=== PATIENT | female | born 1950 | race Two or more races ===

== ENCOUNTER 2018-10-29 05:07 | Emergency (ER) | payer OTHER ==
[~2018-10-29] VITALS: Ht 162.6 cm; Wt 95.5 kg
[2018-10-29 05:09] VITALS: Ht 162.6 cm; Wt 95.5 kg
[2018-10-29] MEDS ORDERED: SOD CHLORIDE 0.9% 500 ML IV STA (05:43)
[2018-10-29] MEDS ORDERED: ONDANSETRON 4 MG INJ IV STA (05:43)
[2018-10-29] MEDS ORDERED: METF-849 PO (06:44)
[2018-10-29] MEDS ORDERED: ONDA4TAB14 PO (06:44)
--- NOTE | 2018-10-29 06:46 | ERD ---
ER Documentation Chief Complaint Chief Complaint NAUSEA WITH VOMIT HPI Patient is a 68-year-old female with no diabetes other than prediabetes she says who presents feeling dizzy and thirsty. She had vomiting as well. The symptoms started last night after she ate a lot of food including an orange and grapefruit. She is not on diabetes medications. She said that her primary doctor is at [facility]. She has had no treatment for the vomiting or dizziness as of yet. ROS All systems reviewed and are negative except as per history of present illness. Medications Home Meds Active Scripts Ondansetron (Ondansetron Odt) 4 Mg Tab.rapdis, 4 MG PO Q6H PRN for NAUSEA AND/OR VOMITING, #10 TAB Prov:EAN PEREZ MD 10/29/18 Metformin* (Glucophage*) 500 Mg Tab, 500 MG PO BID, #60 TAB Prov:EAN PEREZ MD 10/29/18 Allergies Allergies: Coded Allergies: No Known Allergy (Unverified , 10/29/18) PMhx/Soc History of Surgery: Yes (BILATERAL TOTAL KNEE REPLACEMENT) Anesthesia Reaction: No Hx Miscellaneous Medical Probl: Yes (HYPOTHYROIDISM, ANXIETY) Hx Alcohol Use: Yes (OCCASIONAL) Hx Substance Use: No Hx Tobacco Use: No Smoking Status: Never smoker FmHx Family History: No diabetes Physical Exam Vitals Vital Signs Date Temp Pulse Resp B/P (MAP) Pulse Ox O2 O2 Flow FiO2 Time Delivery Rate 10/29/18 98.1 92 19 182/92 97 Room Air 05:17 (122) 10/29/18 98.1 92 19 182/92 97 05:09 (122) Physical Exam Const: No acute distress Head: Atraumatic Eyes: Normal Conjunctiva ENT: Dry mucous membranes Neck: Full range of motion. No meningismus. Resp: Clear to auscultation bilaterally Cardio: Regular rate and rhythm, no murmurs Abd: Soft, non tender, non distended. Normal bowel sounds Skin: No petechiae or rashes Back: No midline or flank tenderness Ext: No cyanosis, or edema Neur: Awake and alert Psych: Normal Mood and Affect Result Diagram: 10/29/18 0553 10/29/18 0553 Results 24 hrs Laboratory Tests Test 10/29/18 05:53 10/29/18 06:20 White Blood Count 7.6 10^3/ul Red Blood Count 4.34 10^6/ul Hemoglobin 12.3 g/dl Hematocrit 37.4 % Mean Corpuscular Volume 86.2 fl Mean Corpuscular Hemoglobin 28.3 pg Mean Corpuscular Hemoglobin Concent 32.9 g/dl Red Cell Distribution Width 12.0 % Platelet Count 362 10^3/UL Mean Platelet Volume 9.2 fl Immature Granulocytes % 0.300 % Neutrophils % 83.5 % Lymphocytes % 11.1 % Monocytes % 5.0 % Eosinophils % 0.0 % Basophils % 0.1 % Nucleated Red Blood Cells % 0.0 /100WBC Immature Granulocytes # 0.020 10^3/ul Neutrophils # 6.3 10^3/ul Lymphocytes # 0.8 10^3/ul Monocytes # 0.4 10^3/ul Eosinophils # 0.0 10^3/ul Basophils # 0.0 10^3/ul Nucleated Red Blood Cells # 0.0 10^3/ul Sodium Level 142 mmol/L Potassium Level 4.6 mmol/L Chloride Level 97 mmol/L Carbon Dioxide Level 30 mmol/L Anion Gap 15 Blood Urea Nitrogen 20 mg/dl Creatinine 0.62 mg/dl Est Glomerular Filtrat Rate mL/min > 60 mL/min Glucose Level 518 mg/dl Calcium Level 10.4 mg/dl Total Bilirubin 0.1 mg/dl Direct Bilirubin 0.00 mg/dl Indirect Bilirubin 0.1 mg/dl Aspartate Amino Transf (AST/SGOT) 22 IU/L Alanine Aminotransferase (ALT/SGPT) 33 IU/L Alkaline Phosphatase 141 IU/L Troponin I < 0.012 ng/ml Total Protein 8.0 g/dl Albumin 4.3 g/dl Globulin 3.70 g/dl Albumin/Globulin Ratio 1.16 Lipase 58 U/L Urine Color YELLOW Urine Clarity CLEAR Urine pH 6.0 Urine Specific [place] 1.028 Urine Ketones NEGATIVE mg/dL Urine Nitrite POSITIVE mg/dL Urine Bilirubin NEGATIVE mg/dL Urine Urobilinogen NEGATIVE mg/dL Urine Leukocyte Esterase NEGATIVE Danica/ul Urine Microscopic RBC 0 /HPF Urine Microscopic WBC 1 /HPF Urine Squamous Epithelial Cells FEW /HPF Urine Bacteria FEW /HPF Urine Hemoglobin 2+ mg/dL Urine Glucose 3+ mg/dL Urine Total Protein NEGATIVE mg/dl Current Medications Medications Dose Sig/[place] Start Time Status Last (Trade) Ordered Route PRN Stop Time Admin Dose Reason Admin Sodium 500 ml @ Q1H STAT 10/29/18 DC 10/29/18 Chloride 500 mls/hr IV 05:43 06:14 10/29/18 06:42 Ondansetron 4 mg ONCE STAT 10/29/18 DC 10/29/18 HCl (Zofran IV 05:43 06:14 Inj) 10/29/18 05:44 Insulin 10 unit ONCE ONCE 10/29/18 DC 10/29/18 Human SC 07:00 06:49 Lispro 10/29/18 07:01 (Humalog) Procedures/MDM EKG read by me: Rate/Rhythm: Regular rate and rhythm at a rate of 84 Intervals: Normal Impression: No evidence of ischemia or arrhythmia Patient is a 68-year-old female who presents with vomiting and dizziness. She was found to have acute new onset diabetes with a sugar of over 500. She was given normal saline 1 L bolus. She was also given Zofran and 10 units of Humalog subcutaneous. The patient is not diabetic ketoacidosis at this time. The patient will be discharged but will need to follow-up closely with her doctor at [facility] for further discussion regarding diabetic treatment. I will give her a prescription for metformin to start but it is possible she may need to be on insulin if her sugars cannot be controlled with oral medications. The patient can return for any worsening symptoms. I doubt int racranial mass or bowel obstruction. Departure Diagnosis: Primary Impression: New onset type 1 diabetes mellitus, uncontrolled Additional Impression: Nausea and vomiting Vomiting type: unspecified Vomiting Intractability: non-intractable Qualified Codes: R11.2 - Nausea with vomiting, unspecified Condition: Fair Patient Instructions: Do You Have Diabetes?, Nausea and Vomiting-Adult Additional Instructions: Call your primary care doctor TOMORROW for an appointment during the next 1-2 days.See the doctor sooner or return here if your condition worsens before your appointment time. EAN PEREZ MD Oct 29, 2018 06:46
[2018-10-29] MEDS ORDERED: INSULIN LISPRO 100 UNIT/ML VIAL SC ONE (07:00)
[2018-10-29 07:40] VITALS: BP 152/78; PULSE 84; RESP 18
== END 2018-10-29 07:55 | disposition home or self-care (01) ==
LOC: E/R 05:07
DX: E10.9 Type 1 diabetes mellitus without complications (principal); E03.9 Hypothyroidism, unspecified; R07.9 Chest pain, unspecified; Z96.653 Presence of artificial knee joint, bilateral
CPT/HCPCS: 36415; 71045; 80053; 81001; 82962; 83690; 84484; 85025; 93005; 96372; 96374; 99285; J1815; J2405; J7040